=== PATIENT | male | born 1940 | race Caucasian/White ===

== ENCOUNTER 2016-10-24 18:31 | Emergency (ER) | payer OTHER, MEDICARE ==
--- NOTE | 2016-10-24 20:35 | DIAGNOSTIC IMAGING REPORT ---
PROCEDURE: XR SHOULDER 2 OR MORE VW-RIGHT INDICATION: TRAUMA/INJURY TECHNIQUE: Three views. COMPARISON: None. FINDINGS: Mild degenerative changes of the acromion, acromioclavicular joint, and right glenohumeral joint. There is no evidence of acute process or fracture. Right dual lead pacemaker obscures some detail. Status post median sternotomy. IMPRESSION: 1. Mild degenerative changes. 2. Otherwise negative right shoulder.
--- NOTE | 2016-10-24 20:43 | ED NURSING NOTES ---
Clinical Report - Nurses [facility] [address] [place] [address] 10/24/2016 18:35 Patient: LIZANDRO GARCIA TRIAGE Triage time 19:27. Acuity: LEVEL 3. Chief Complaint: INJURY TO RIGHT SHOULDER. Alert. No acute distress. AMBER COMA SCORE: [place] Coma Scale: 15- eyes open spontaneously (4); best verbal response- oriented x 4 (5); best motor response- obeys commands (6). --19:39 Helena Marshall R.N. 19:27 10/24/16. BP: 157/78. HR: 68. RR: 20. O2 saturation: 98% on room air. Temp: 97.7 F. Pain level now: 710. --19:39 Helena Marshall R.N. 19:27 10/24/16. BP: 157/78. HR: 68. RR: 20. O2 saturation: 98% on room air. Temp: 97.7 F. Pain level now: 10. --19:39 Helena Marshall R.N. Weight: 544.3 kg stated. Height/Length: 65 inches Per Patient. BMI: 199.9. --19:38 Helena Marshall R.N. Medications Metoprolol Tartrate Oral 50 mg, day. --19:30 Helena Marshall R.N. Warfarin Sodium Oral 3 mg s/s/t/w, 1.5mg the other days. . --19:31 Helena Marshall R.N. Levothyroxine Sodium Oral, daily. --19:32 Helena Marshall R.N. Crestor Oral, daily. --19:33 Helena Marshall R.N. Medication/allergy information source: the patient. --19:39 Helena Marshall R.N. Allergies Lipitor. --19:34 Helena Marshall R.N. History Arrived by private vehicle. Historian: patient. Accompanied by family. This occurred just prior to arrival. 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 PAST MEDICAL HX: Tetanus status: unknown. SOCIAL HX: Smoker- current status unknown. No alcohol use or drug use. FALL RISK ASSESSMENT: Fall risk assessment completed. No fall risk identified. NUTRITIONAL RISK ASSESSMENT: The nutritional risk assessment revealed no deficiencies. FUNCTIONAL ASSESSMENT: Functional assessment: no impairments noted. LEARNING NEEDS ASSESSMENT: The learning needs assessment revealed no barriers. SKIN INTEGRITY ASSESSMENT: Skin integrity risk assessment completed. No skin integrity risk identified. --19:39 Helena Marshall R.N. Occurred at friend's house. --19:39 Helena Marshall R.N. PROBLEMS: Hypothyroidism. Hypertension. Hypercholesterolemia. --19:35 Helena Marshall R.N. ADDITIONAL SURGERIES: CABG. Pacemaker. --19:35 Helena Marshall R.N. Interventions ID band on patient. To room. --19:39 Helena Marshall R.N. PHYSICAL ASSESSMENT Ambulatory to room. Patient gowned. GENERAL / NEURO / PSYCH: Oriented X 4. Alert. Appears in pain and anxious. HEENT: Right clavicle area. EXTREMITIES: Limited ROM present. Extremity pulses are within normal limits. Right shoulder: tenderness. SKIN: Skin intact. Skin is warm and dry. --19:40 Helena Marshall R.N. NURSING PROGRESS NOTES Cold pack applied. Patient gowned. Call light placed in reach. Side rails up x 2. Patient ready for evaluation. --19:41 Helena Marshall R.N. Two patient identifiers checked. Bed placed in lowest position. Brakes of bed on. --19:41 Helena Marshall R.N. Patient walked to radiology with tech. --20:02 Helena Marshall R.N. 20:31 10/24/2016 Hydrocodone-APAP (Hydrocodone-Acetaminophen) PO 5/325 mg Tablets 1 tab given. Allergies verified, confirmed 5 rights and sedative warning given to the patient. --20:31 Helena Marshall R.N. Patient walked back to ED from radiology with tech. (20:15). --20:31 Helena Marshall R.N. 20:32 10/24/16. Cold pack applied. --20:32 Helena Marshall R.N. Sling applied to right arm by nurse; distal pulses intact, sensation intact and motor function within normal limits. --21:10 Helena Marshall R.N. ( Patient sent home with two ice bags.). --21:10 Helena Marshall R.N. DISPOSITION / DISCHARGE Condition at departure: improved. ( Sling to rt upper extrermity, good cms to fingers.). No learning barriers present. Discharge instructions provided and reviewed with the patient and spouse. Patient and spouse verbalized understanding. Written instructions provided in [place]. The patient was discharged home and accompanied by spouse. He left the Emergency Department ambulatory and via private vehicle. Spouse driving. Medication list reviewed and validated. --21:09 Helena Marshall R.N. 21:07 10/24/16. BP: 142/88. HR: 86. RR: 20. O2 saturation: 98% on room air. Temp: deferred. Pain level now: 04/20. 19:27 10/24/16. BP: 157/78. HR: 68. RR: 20. O2 saturation: 98% on room air. Temp: 97.7 F. Pain level now: 10/18. --21:09 Helena Marshall R.N. Locked/Released at 10/24/2016 21:11 by Helena Marshall R.N.
--- NOTE | 2016-10-24 20:43 | ED CLINICAL REPORT ---
Clinical Report - Physicians/Mid Levels [facility] [address] [place] [address] 10/24/2016 18:35 Patient: LIZANDRO GARCIA Time Seen: 19:31 Oct 24 2016. Arrived- By private vehicle. Historian- patient. HISTORY OF PRESENT ILLNESS Chief Complaint: Injury to shoulder. The injury happened just prior to arrival. Occurred at home. This was not a raising of the arm dislocation or an incised wound. Patient is experiencing mild pain. ( fell on a porch prior to arrival, he denies any injury to his head or neck. Prior Clavicle injury on the right aspect. Patient is left-hand dominant.). REVIEW OF SYSTEMS No tingling, numbness or skin laceration. All systems otherwise negative, except as recorded above. PAST HISTORY The patient's dominant hand is the left. He has not had a prior injury to the same area. SOCIAL HISTORY No alcohol use or drug use. ADDITIONAL NOTES The nursing notes have been reviewed. PHYSICAL EXAM Vital Signs: 10/24/2016 19:27 BP: 157/78. HR: 68. RR: 20. O2 saturation: 98%. Temp: 97.7 F. Pain level now: 7/10. Appearance: Alert. No acute distress. Head: Head atraumatic. ENT: Nose normal. CVS: Normal heart rate and rhythm. Heart sounds normal. Respiratory: No respiratory distress. Breath sounds normal. Extremities: Abnormal external inspection. Right clavicle area. No tenderness or swelling. Right acromion: swelling, mild tenderness and superficial laceration. No abrasion. Right acromio-clavicular joint: No tenderness. Right proximal humerus: No erythema. Neuro, Vascular and Tendons: Vascular status intact. Tendon function intact. No functional tendon deficit. LABS, X-RAYS, AND EKG Rt Shoulder X-ray: (IMPRESSION: 1. Mild degenerative changes. 2. Otherwise negative right shoulder. Electronically Final signed by:Lam Simms MD 10/24/2016 8:28:59 PM). PROGRESS AND PROCEDURES PROCEDURES (sling: right shoulder). Course of Care: there are no obvious signs of fracture or dislocation. Patient with good distal neurovascular. He denies any injury to his head or neck. Patient is very stable. 10/24/2016 21:07 BP: 142/88. HR: 86. RR: 20. O2 saturation: 98%. Pain level now: 04/20. Patient is stable. Physical exam findings are improved. Symptoms better. Patient/family counseled. Disposition: Discharged. Condition: good. CLINICAL IMPRESSION Sprain of the right AC joint. INSTRUCTIONS Apply ice. Wear sling. Prescription Medications: Hydrocodone/APAP 5mg / 325mg: take 1 orally every 6 hours as needed for pain. Dispense fifteen (15). No refill. Follow-up with: [facility], [facility], , [address] , [place], [id number] Follow up. Call for the next available appointment. (Electronically signed by Christa Madden P.A.-C 10/24/2016 22:35)
--- NOTE | 2016-10-24 20:43 | ED CLINICAL REPORT ---
Clinical Report - Physicians/Mid Levels [facility] [address] [place] [address] 10/24/2016 18:35 Patient: LIZANDRO GARCIA Time Seen: 19:31 Oct 24 2016. Arrived- By private vehicle. Historian- patient. HISTORY OF PRESENT ILLNESS Chief Complaint: Injury to shoulder. The injury happened just prior to arrival. Occurred at home. This was not a raising of the arm dislocation or an incised wound. Patient is experiencing mild pain. ( fell on a porch prior to arrival, he denies any injury to his head or neck. Prior Clavicle injury on the right aspect. Patient is left-hand dominant.). REVIEW OF SYSTEMS No tingling, numbness or skin laceration. All systems otherwise negative, except as recorded above. PAST HISTORY The patient's dominant hand is the left. He has not had a prior injury to the same area. SOCIAL HISTORY No alcohol use or drug use. ADDITIONAL NOTES The nursing notes have been reviewed. PHYSICAL EXAM Vital Signs: 10/24/2016 19:27 BP: 157/78. HR: 68. RR: 20. O2 saturation: 98%. Temp: 97.7 F. Pain level now: 7/10. Appearance: Alert. No acute distress. Head: Head atraumatic. ENT: Nose normal. CVS: Normal heart rate and rhythm. Heart sounds normal. Respiratory: No respiratory distress. Breath sounds normal. Extremities: Abnormal external inspection. Right clavicle area. No tenderness or swelling. Right acromion: swelling, mild tenderness and superficial laceration. No abrasion. Right acromio-clavicular joint: No tenderness. Right proximal humerus: No erythema. Neuro, Vascular and Tendons: Vascular status intact. Tendon function intact. No functional tendon deficit. LABS, X-RAYS, AND EKG Rt Shoulder X-ray: (IMPRESSION: 1. Mild degenerative changes. 2. Otherwise negative right shoulder. Electronically Final signed by:Lam Simms MD 10/24/2016 8:28:59 PM). PROGRESS AND PROCEDURES PROCEDURES (sling: right shoulder). Course of Care: there are no obvious signs of fracture or dislocation. Patient with good distal neurovascular. He denies any injury to his head or neck. Patient is very stable. 10/24/2016 21:07 BP: 142/88. HR: 86. RR: 20. O2 saturation: 98%. Pain level now: 04/20. Patient is stable. Physical exam findings are improved. Symptoms better. Patient/family counseled. Disposition: Discharged. Condition: good. CLINICAL IMPRESSION Sprain of the right AC joint. INSTRUCTIONS Apply ice. Wear sling. Prescription Medications: Hydrocodone/APAP 5mg / 325mg: take 1 orally every 6 hours as needed for pain. Dispense fifteen (15). No refill. Follow-up with: [facility], [facility], , [address] , [place], [phone] Follow up. Call for the next available appointment. (Electronically signed by Christa Madden P.A.-C 10/24/2016 22:35)
--- NOTE | 2016-10-24 20:43 | ED ORDER SUMMARY ---
..... Patient: LIZANDRO GARCIA OrderSheet [facility] VisitID: [id number] [address] [place] [address] 76y, M Registration Date/Time: 10/24/2016 ORDER SHEET Weight: 544.3 kg (stated) Allergies: Lipitor GENERAL ORDERS: Shoulder 2V or more Right Urgent (19:29 10/24/2016 Vivi CamposAAlicia-C) (Ack 19:30 OSnell) (19:39 RFay) MEDICATION ORDERS: Hydrocodone-APAP PO 5/325 mg (NOW, HIGH ALERT MEDICATION) (20:13 10/24/2016 Vivi Renteria-Koki) (Ack 20:28 SRoberts R.N.) (20:31 SRoberts R.N.) IV FLUIDS: ORDER SHEET NOTES: [Electronically signed by Helena Marshall R.N. (21:11 10/24/2016)] [Electronically signed by Christa Madden P.A.-C (22:35 10/24/2016)] [Electronically locked/signed by Helena Marshall R.N. (21:11 10/24/2016)]
--- NOTE | 2016-10-24 20:43 | ED NURSING NOTES ---
Clinical Report - Nurses [facility] [address] [place] [address] 10/24/2016 18:35 Patient: LIZANDRO GARCIA TRIAGE Triage time 19:27. Acuity: LEVEL 3. Chief Complaint: INJURY TO RIGHT SHOULDER. Alert. No acute distress. AMBER COMA SCORE: [place] Coma Scale: 15- eyes open spontaneously (4); best verbal response- oriented x 4 (5); best motor response- obeys commands (6). --19:39 Helena Marshall R.N. 19:27 10/24/16. BP: 157/78. HR: 68. RR: 20. O2 saturation: 98% on room air. Temp: 97.7 F. Pain level now: 710. --19:39 Helena Marshall R.N. 19:27 10/24/16. BP: 157/78. HR: 68. RR: 20. O2 saturation: 98% on room air. Temp: 97.7 F. Pain level now: 10. --19:39 Helena Marshall R.N. Weight: 544.3 kg stated. Height/Length: 65 inches Per Patient. BMI: 199.9. --19:38 Helena Marshall R.N. Medications Metoprolol Tartrate Oral 50 mg, day. --19:30 Helena Marshall R.N. Warfarin Sodium Oral 3 mg s/s/t/w, 1.5mg the other days. . --19:31 Helena Marshall R.N. Levothyroxine Sodium Oral, daily. --19:32 Helena Marshall R.N. Crestor Oral, daily. --19:33 Helena Marshall R.N. Medication/allergy information source: the patient. --19:39 Helena Marshall R.N. Allergies Lipitor. --19:34 Helena Marshall R.N. History Arrived by private vehicle. Historian: patient. Accompanied by family. This occurred just prior to arrival. 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 PAST MEDICAL HX: Tetanus status: unknown. SOCIAL HX: Smoker- current status unknown. No alcohol use or drug use. FALL RISK ASSESSMENT: Fall risk assessment completed. No fall risk identified. NUTRITIONAL RISK ASSESSMENT: The nutritional risk assessment revealed no deficiencies. FUNCTIONAL ASSESSMENT: Functional assessment: no impairments noted. LEARNING NEEDS ASSESSMENT: The learning needs assessment revealed no barriers. SKIN INTEGRITY ASSESSMENT: Skin integrity risk assessment completed. No skin integrity risk identified. --19:39 Helena Marshall R.N. Occurred at friend's house. --19:39 Helena Marshall R.N. PROBLEMS: Hypothyroidism. Hypertension. Hypercholesterolemia. --19:35 Helena Marshall R.N. ADDITIONAL SURGERIES: CABG. Pacemaker. --19:35 Helena Marshall R.N. Interventions ID band on patient. To room. --19:39 Helena Marshall R.N. PHYSICAL ASSESSMENT Ambulatory to room. Patient gowned. GENERAL / NEURO / PSYCH: Oriented X 4. Alert. Appears in pain and anxious. HEENT: Right clavicle area. EXTREMITIES: Limited ROM present. Extremity pulses are within normal limits. Right shoulder: tenderness. SKIN: Skin intact. Skin is warm and dry. --19:40 Helena Marshall R.N. NURSING PROGRESS NOTES Cold pack applied. Patient gowned. Call light placed in reach. Side rails up x 2. Patient ready for evaluation. --19:41 Helena Marshall R.N. Two patient identifiers checked. Bed placed in lowest position. Brakes of bed on. --19:41 Helena Marshall R.N. Patient walked to radiology with tech. --20:02 Helena Marshall R.N. 20:31 10/24/2016 Hydrocodone-APAP (Hydrocodone-Acetaminophen) PO 5/325 mg Tablets 1 tab given. Allergies verified, confirmed 5 rights and sedative warning given to the patient. --20:31 Helena Marshall R.N. Patient walked back to ED from radiology with tech. (20:15). --20:31 Helena Marshall R.N. 20:32 10/24/16. Cold pack applied. --20:32 Helena Marshall R.N. Sling applied to right arm by nurse; distal pulses intact, sensation intact and motor function within normal limits. --21:10 Helena Marshall R.N. ( Patient sent home with two ice bags.). --21:10 Helena Marshall R.N. DISPOSITION / DISCHARGE Condition at departure: improved. ( Sling to rt upper extrermity, good cms to fingers.). No learning barriers present. Discharge instructions provided and reviewed with the patient and spouse. Patient and spouse verbalized understanding. Written instructions provided in [place]. The patient was discharged home and accompanied by spouse. He left the Emergency Department ambulatory and via private vehicle. Spouse driving. Medication list reviewed and validated. --21:09 Helena Marshall R.N. 21:07 10/24/16. BP: 142/88. HR: 86. RR: 20. O2 saturation: 98% on room air. Temp: deferred. Pain level now: 04/20. 19:27 10/24/16. BP: 157/78. HR: 68. RR: 20. O2 saturation: 98% on room air. Temp: 97.7 F. Pain level now: 10/18. --21:09 Helena Marshall R.N. Locked/Released at 10/24/2016 21:11 by Helena Marshall R.N.
--- NOTE | 2016-10-24 20:43 | ED ORDER SUMMARY ---
..... Patient: LIZANDRO GARCIA OrderSheet [facility] VisitID: [id number] [address] [place] [address] 76y, M Registration Date/Time: 10/24/2016 ORDER SHEET Weight: 544.3 kg (stated) Allergies: Lipitor GENERAL ORDERS: Shoulder 2V or more Right Urgent (19:29 10/24/2016 Vivi CamposAAlicia-C) (Ack 19:30 OSnell) (19:39 RFay) MEDICATION ORDERS: Hydrocodone-APAP PO 5/325 mg (NOW, HIGH ALERT MEDICATION) (20:13 10/24/2016 Vivi Renteria-Koki) (Ack 20:28 SRoberts R.N.) (20:31 SRoberts R.N.) IV FLUIDS: ORDER SHEET NOTES: [Electronically signed by Helena Marshall R.N. (21:11 10/24/2016)] [Electronically signed by Christa Madden P.A.-C (22:35 10/24/2016)] [Electronically locked/signed by Helena Marshall R.N. (21:11 10/24/2016)]
--- NOTE | 2016-10-24 22:35 | ED DISCHARGE INSTRUCTIONS ---
Patient: LIZANDRO GRACIA General Instructions [facility] VisitID: [id number] [address] [place], [place] [id number] 76y, M Registration Date/Time: 10/24/2016 Sprain of the right AC joint. INSTRUCTIONS Apply ice. Wear sling. Prescription Medications: Hydrocodone/APAP 5mg / 325mg: take 1 orally every 6 hours as needed for pain. Dispense fifteen (15). No refill. Follow-up with: [facility], , [address], , [place], [phone] Follow up. Call for the next available appointment. ADDITIONAL INFORMATION Shoulder Sprain A sprain is a stretching or tearing of the ligaments that hold a joint together. A sprain may take up to six weeks to fully heal, depending on how severe it is. Moderate to severe shoulder sprains are treated with a sling or shoulder immobilizer. Minor sprains can be treated without any special support. Home care The following guidelines will help you care for your injury at home: If a sling was provided, leave it in place for the time advised by your doctor. If you are unsure how long to wear it, ask for advice. If the sling becomes loose, adjust it so that your forearm is level with the ground and the shoulder feels well supported. Apply an ice pack (ice cubes in a plastic bag, wrapped in a thin towel) over the injured area for 20 minutes every 12 hours the first day. Continue with ice packs 34 times a day for the next two days, then as needed for the relief of pain and swelling. You may use acetaminophen or ibuprofen to control pain, unless another pain medicine was prescribed.If you have chronic liver or kidney disease or ever had a stomach ulcer or GI bleeding, talk with your doctor before using these medicines. Shoulder joints become stiff if left in a sling for too long. Range of motion exercises should usually be started within the first ten days after injury. Consult your doctor on what type of exercises to do and how soon to start. Follow-up care Follow up with your doctor as directed. Any X-rays you had today dont show any broken bones, breaks, or fractures. Sometimes fractures dont show up on the first X-ray. Bruises and sprains can sometimes hurt as much as a fracture. These injuries can take time to heal completely. If your symptoms dont improve or they get worse, talk with your doctor. You may need a repeat X-ray. When to seek medical care Get prompt medical attention if any of the following occur: Increasing shoulder pain or arm swelling Fingers become cold, blue, numb, or tingly Large amount of bruising of the shoulder or upper arm Hydrocodone Bitartrate, Acetaminophen Oral tablet What is this medicine? ACETAMINOPHEN; HYDROCODONE (a set a MAREK blake fen; linda droe KOE done) is a pain reliever. It is used to treat mild to moderate pain. How should I use this medicine? Take this medicine by mouth. Swallow it with a full glass of water. Follow the directions on the prescription label. If the medicine upsets your stomach, take the medicine with food or milk. Do not take more than you are told to take. Talk to your agriculture internship regarding the use of this medicine in children. This medicine is not approved for use in children. What side effects may I notice from receiving this medicine? Side effects that you should report to your doctor or health rn homecare as soon as possible: allergic reactions like skin rash, itching or hives, swelling of the face, lips, or tongue breathing problems confusion feeling faint or lightheaded, falls stomach pain yellowing of the eyes or skin Side effects that usually do not require medical attention (report to your doctor or health rn homecare if they continue or are bothersome): nausea, vomiting stomach upset What may interact with this medicine? alcohol antihistamines isoniazid medicines for depression, anxiety, or psychotic disturbances medicines for sleep muscle relaxants naltrexone narcotic medicines (opiates) for pain phenobarbital ritonavir tramadol What if I miss a dose? If you miss a dose, take it as soon as you can. If it is almost time for your next dose, take only that dose. Do not take double or extra doses. Where should I keep my medicine? Keep out of the reach of children. This medicine can be abused. Keep your medicine in a safe place to protect it from theft. Do not share this medicine with anyone. Selling or giving away this medicine is dangerous and against the law. Store at room temperature between 15 and 30 degrees C (59 and 86 degrees F). Protect from light. Keep container tightly closed. Throw away any unused medicine after the expiration date. Discard unused medicine and used packaging carefully. Pets and children can be harmed if they find used or lost packages. What should I tell my health care provider before I take this medicine? They need to know if you have any of these conditions: brain tumor Crohn's disease, inflammatory bowel disease, or ulcerative colitis drink more than 3 alcohol-containing drinks per day drug abuse or addiction head injury heart or circulation problems kidney disease or problems going to the bathroom liver disease lung disease, asthma, or breathing problems an unusual or allergic reaction to acetaminophen, hydrocodone, other opioid analgesics, other medicines, foods, dyes, or preservatives or trying to get breast-feeding What should I watch for while using this medicine? Tell your doctor or health rn homecare if your pain does not go away, if it gets worse, or if you have new or a different type of pain. You may develop tolerance to the medicine. Tolerance means that you will need a higher dose of the medicine for pain relief. Tolerance is normal and is expected if you take the medicine for a long time. Do not suddenly stop taking your medicine because you may develop a severe reaction. Your body becomes used to the medicine. This does NOT mean you are addicted. Addiction is a behavior related to getting and using a drug for a non-medical reason. If you have pain, you have a medical reason to take pain medicine. Your doctor will tell you how much medicine to take. If your doctor wants you to stop the medicine, the dose will be slowly lowered over time to avoid any side effects. You may get drowsy or dizzy when you first start taking the medicine or change doses. Do not drive, use machinery, or do anything that may be dangerous until you know how the medicine affects you. Stand or sit up slowly. There are different types of narcotic medicines (opiates) for pain. If you take more than one type at the same time, you may have more side effects. Give your health care provider a list of all medicines you use. Your doctor will tell you how much medicine to take. Do not take more medicine than directed. Call emergency for help if you have problems breathing. The medicine will cause constipation. Try to have a bowel movement at least every 2 to 3 days. If you do not have a bowel movement for 3 days, call your doctor or health rn homecare. Too much acetaminophen can be very dangerous. Do not take Tylenol (acetaminophen) or medicines that contain acetaminophen with this medicine. Many non-prescription medicines contain acetaminophen. Always read the labels carefully. You have been given the following additional information: Shoulder Sprain Hydrocodone Bitartrate, Acetaminophen Oral tablet (Electronically signed by Christa Madden P.A.-C 10/24/2016 22:35)
--- NOTE | 2016-10-24 22:35 | ED MAR SUMMARY ---
..... Medication Administration Record [facility] [address] [place] [address] Patient: LIZANDRO GARCIA Visit ID: [id number] 76y, M Weight: 544.3 kg Height/Length: 65 in BMI: 199.9 ALLERGIES: Lipitor Given 20:31 10/24/2016 Helena Marshall R.N. Medication Administered: HYDROCODONE-APAP [PO] (HYDROCODONE-ACETAMINOPHEN), Dose: 1 tab 5/325 mg Tablets PO. Medication Ordered: Hydrocodone-APAP PO 5/325 mg (NOW, HIGH ALERT MEDICATION).
--- NOTE | 2016-10-24 22:35 | ED DISCHARGE INSTRUCTIONS ---
Patient: LIZANDRO GARCIA General Instructions [facility] VisitID: [id number] [address] [place] [id number] 76y, M Registration Date/Time: 10/24/2016 Sprain of the right AC joint. INSTRUCTIONS Apply ice. Wear sling. Prescription Medications: Hydrocodone/APAP 5mg / 325mg: take 1 orally every 6 hours as needed for pain. Dispense fifteen (15). No refill. Follow-up with: [facility], , [address], , [place], [id number] Follow up. Call for the next available appointment. ADDITIONAL INFORMATION Shoulder Sprain A sprain is a stretching or tearing of the ligaments that hold a joint together. A sprain may take up to six weeks to fully heal, depending on how severe it is. Moderate to severe shoulder sprains are treated with a sling or shoulder immobilizer. Minor sprains can be treated without any special support. Home care The following guidelines will help you care for your injury at home: If a sling was provided, leave it in place for the time advised by your doctor. If you are unsure how long to wear it, ask for advice. If the sling becomes loose, adjust it so that your forearm is level with the ground and the shoulder feels well supported. Apply an ice pack (ice cubes in a plastic bag, wrapped in a thin towel) over the injured area for 20 minutes every 12 hours the first day. Continue with ice packs 34 times a day for the next two days, then as needed for the relief of pain and swelling. You may use acetaminophen or ibuprofen to control pain, unless another pain medicine was prescribed.If you have chronic liver or kidney disease or ever had a stomach ulcer or GI bleeding, talk with your doctor before using these medicines. Shoulder joints become stiff if left in a sling for too long. Range of motion exercises should usually be started within the first ten days after injury. Consult your doctor on what type of exercises to do and how soon to start. Follow-up care Follow up with your doctor as directed. Any X-rays you had today dont show any broken bones, breaks, or fractures. Sometimes fractures dont show up on the first X-ray. Bruises and sprains can sometimes hurt as much as a fracture. These injuries can take time to heal completely. If your symptoms dont improve or they get worse, talk with your doctor. You may need a repeat X-ray. When to seek medical care Get prompt medical attention if any of the following occur: Increasing shoulder pain or arm swelling Fingers become cold, blue, numb, or tingly Large amount of bruising of the shoulder or upper arm Hydrocodone Bitartrate, Acetaminophen Oral tablet What is this medicine? ACETAMINOPHEN; HYDROCODONE (a set a MAREK blake fen; linda droe KOE done) is a pain reliever. It is used to treat mild to moderate pain. How should I use this medicine? Take this medicine by mouth. Swallow it with a full glass of water. Follow the directions on the prescription label. If the medicine upsets your stomach, take the medicine with food or milk. Do not take more than you are told to take. Talk to your business machines teacher regarding the use of this medicine in children. This medicine is not approved for use in children. What side effects may I notice from receiving this medicine? Side effects that you should report to your doctor or health administrator health care facility as soon as possible: allergic reactions like skin rash, itching or hives, swelling of the face, lips, or tongue breathing problems confusion feeling faint or lightheaded, falls stomach pain yellowing of the eyes or skin Side effects that usually do not require medical attention (report to your doctor or health administrator health care facility if they continue or are bothersome): nausea, vomiting stomach upset What may interact with this medicine? alcohol antihistamines isoniazid medicines for depression, anxiety, or psychotic disturbances medicines for sleep muscle relaxants naltrexone narcotic medicines (opiates) for pain phenobarbital ritonavir tramadol What if I miss a dose? If you miss a dose, take it as soon as you can. If it is almost time for your next dose, take only that dose. Do not take double or extra doses. Where should I keep my medicine? Keep out of the reach of children. This medicine can be abused. Keep your medicine in a safe place to protect it from theft. Do not share this medicine with anyone. Selling or giving away this medicine is dangerous and against the law. Store at room temperature between 15 and 30 degrees C (59 and 86 degrees F). Protect from light. Keep container tightly closed. Throw away any unused medicine after the expiration date. Discard unused medicine and used packaging carefully. Pets and children can be harmed if they find used or lost packages. What should I tell my health care provider before I take this medicine? They need to know if you have any of these conditions: brain tumor Crohn's disease, inflammatory bowel disease, or ulcerative colitis drink more than 3 alcohol-containing drinks per day drug abuse or addiction head injury heart or circulation problems kidney disease or problems going to the bathroom liver disease lung disease, asthma, or breathing problems an unusual or allergic reaction to acetaminophen, hydrocodone, other opioid analgesics, other medicines, foods, dyes, or preservatives or trying to get breast-feeding What should I watch for while using this medicine? Tell your doctor or health administrator health care facility if your pain does not go away, if it gets worse, or if you have new or a different type of pain. You may develop tolerance to the medicine. Tolerance means that you will need a higher dose of the medicine for pain relief. Tolerance is normal and is expected if you take the medicine for a long time. Do not suddenly stop taking your medicine because you may develop a severe reaction. Your body becomes used to the medicine. This does NOT mean you are addicted. Addiction is a behavior related to getting and using a drug for a non-medical reason. If you have pain, you have a medical reason to take pain medicine. Your doctor will tell you how much medicine to take. If your doctor wants you to stop the medicine, the dose will be slowly lowered over time to avoid any side effects. You may get drowsy or dizzy when you first start taking the medicine or change doses. Do not drive, use machinery, or do anything that may be dangerous until you know how the medicine affects you. Stand or sit up slowly. There are different types of narcotic medicines (opiates) for pain. If you take more than one type at the same time, you may have more side effects. Give your health care provider a list of all medicines you use. Your doctor will tell you how much medicine to take. Do not take more medicine than directed. Call emergency for help if you have problems breathing. The medicine will cause constipation. Try to have a bowel movement at least every 2 to 3 days. If you do not have a bowel movement for 3 days, call your doctor or health administrator health care facility. Too much acetaminophen can be very dangerous. Do not take Tylenol (acetaminophen) or medicines that contain acetaminophen with this medicine. Many non-prescription medicines contain acetaminophen. Always read the labels carefully. You have been given the following additional information: Shoulder Sprain Hydrocodone Bitartrate, Acetaminophen Oral tablet (Electronically signed by Christa Madden P.A.-C 10/24/2016 22:35)
--- NOTE | 2016-10-24 22:35 | ED MED RECONCILIATION SUMMARY ---
Patient: LIZANDRO GARCIA Medication Reconciliation Report [facility] VisitID: [id number] [address] [place] [address] 76y, M Registration Date/Time: 10/24/2016 Weight: 544.3 kg Height/Length: 65 in. BMI: 199.9 ALLERGIES: Lipitor The patient's Home Medications are listed below: THE FOLLOWING MEDICATIONS NEED TO BE RECONCILED: Crestor Oral, daily Levothyroxine Sodium Oral, daily Metoprolol Tartrate Oral 50 mg, day Warfarin Sodium Oral 3 mg s/s/t/w, 1.5mg the other days. The source(s) of the original Home Medication information: patient The following Medications were given to the patient in the Emergency Department: Hydrocodone-APAP [PO] PO 1 tab, administered: 10/24/2016 8:31:00 PM The following Medications were prescribed to the patient: Hydrocodone/APAP 5mg / 325mg: take 1 orally every 6 hours as needed for pain. Dispense fifteen (15). No refill. -- Christa Madden P.A.-C
--- NOTE | 2016-10-24 22:35 | ED MED RECONCILIATION SUMMARY ---
Patient: LIZANDRO GARCIA Medication Reconciliation Report [facility] VisitID: [id number] [address] [place] [address] 76y, M Registration Date/Time: 10/24/2016 Weight: 544.3 kg Height/Length: 65 in. BMI: 199.9 ALLERGIES: Lipitor The patient's Home Medications are listed below: THE FOLLOWING MEDICATIONS NEED TO BE RECONCILED: Crestor Oral, daily Levothyroxine Sodium Oral, daily Metoprolol Tartrate Oral 50 mg, day Warfarin Sodium Oral 3 mg s/s/t/w, 1.5mg the other days. The source(s) of the original Home Medication information: patient The following Medications were given to the patient in the Emergency Department: Hydrocodone-APAP [PO] PO 1 tab, administered: 10/24/2016 8:31:00 PM The following Medications were prescribed to the patient: Hydrocodone/APAP 5mg / 325mg: take 1 orally every 6 hours as needed for pain. Dispense fifteen (15). No refill. -- Christa Madden P.A.-C
--- NOTE | 2016-10-24 22:35 | ED MAR SUMMARY ---
..... Medication Administration Record [facility] [address] [place] [address] Patient: LIZANDRO GARCIA Visit ID: [id number] 76y, M Weight: 544.3 kg Height/Length: 65 in BMI: 199.9 ALLERGIES: Lipitor Given 20:31 10/24/2016 Helena Marshall R.N. Medication Administered: HYDROCODONE-APAP [PO] (HYDROCODONE-ACETAMINOPHEN), Dose: 1 tab 5/325 mg Tablets PO. Medication Ordered: Hydrocodone-APAP PO 5/325 mg (NOW, HIGH ALERT MEDICATION).
== END 2016-10-24 21:07 | disposition home or self-care (01) ==
LOC: ED SRH 18:31
DX: S43.51XA Sprain of right acromioclavicular joint, initial encounter (principal); W19.XXXA Unspecified fall, initial encounter; Y93.9 Activity, unspecified; Y92.009 Unspecified place in unspecified non-institutional (private) residence as the place of occurrence of the external cause; Y99.9 Unspecified external cause status